=== PATIENT | female | born 1935 | race African-American/Black ===

== ENCOUNTER 2022-01-26 09:50 | Inpatient (IN) | payer OTHER ==
[~2022-01-26] VITALS: Ht 167.6 cm; Wt 61.7 kg
[2022-01-26 10:43] LABS: BASOPHILS % 0.6 % (0.0-2.0); EOSINOPHILS % 2.6 % (0.0-5.0); HEMATOCRIT. 31.9 % (36.0-48.0); HEMOGLOBIN. 10.7 g/dL (12.0-16.0); LYMPHOCYTES % 34.3 % (20.0-50.0); MEAN CORPUSCULAR HEMOGLOBIN 28.2 pg (28.0-32.0); MEAN CORPUSCULAR VOLUME 84.2 fL (81.0-99.0); MEAN PLATELET VOLUME 7.5 fl (7.4-10.4); MONOCYTES % 10.3 % (2.0-8.0); NEUTROPHILS % 52.2 % (40.0-76.0); PLATELET 310 x1000/uL (130-400); RED BLOOD CELL COUNT 3.79 mill/uL (4.2-5.4); RED CELL DISTRIBUTION WIDTH 13.2 % (11.6-14.6)
[2022-01-26 10:48] LABS: CHLORIDE 87 mEq/L (98-107)
[2022-01-26 10:56] LABS: ETHANOL BLOOD < 10 mg/dL
[2022-01-26] MEDS ORDERED: SODIUM CHLORIDE 3% 500ML IV SOLN IV ONE (11:15)
[2022-01-26] MEDS ORDERED: SODIUM CHLORIDE 0.9% 1,000 ML IV ONE (11:15)
[2022-01-26 11:38] LABS: CLARITY URINE TURBID (CLEAR); COLOR URINE YELLOW (YELLOW); KETONES URINE NEGATIVE (NEGATIVE); LEUKOCYTE ESTERASE URINE 3+ (NEGATIVE); NITRITE URINE NEGATIVE (NEGATIVE); OCCULT BLOOD URINE 3+ (NEGATIVE); PH URINE 5.5 (4.5-8.0); PROTEIN URINE 1+ (NEGATIVE); SPECIFIC GRAVITY URINE 1.018 (1.005-1.030); UROBILINOGEN URINE 0.2 E.U./dL (0.2-1.0)
[2022-01-26 11:53] LABS: *AMPHETAMINES SCREEN URINE NEGATIVE (NEGATIVE); *BARBITURATES SCREEN URINE NEGATIVE (NEGATIVE); *BENZODIAZEPINES SCREEN URINE NEGATIVE (NEGATIVE); *COCAINE SCREEN URINE NEGATIVE (NEGATIVE); CANNABINOID URINE SCREEN NEGATIVE (NEGATIVE); METHADONE URINE SCREEN NEGATIVE (NEGATIVE); OPIATES URINE SCREEN NEGATIVE (NEGATIVE); PHENCYCLIDINE URINE SCREEN NEGATIVE (NEGATIVE)
[2022-01-26] MEDS ORDERED: SODIUM CHLORIDE 3% 100 ML IV SCH (12:00)
[2022-01-26] MEDS ORDERED: IOHEXOL-350 100 ML BOTTLE ONE (13:07)
[2022-01-26 14:24] LABS: T4 FREE 1.53 ng/dL (0.76-1.46)
[2022-01-26 14:38] LABS: FOLIC ACID (FOLATE) SERUM 9.7 ng/mL (>5.38)
[2022-01-26] MEDS ORDERED: MAGNESIUM/ALUMINUM HYDROXIDE/SIMETHICONE 30ML UDC PO PRN (15:15)
[2022-01-26] MEDS ORDERED: ONDANSETRON HCL 4MG/2ML INJ IV PRN (15:15)
[2022-01-26] MEDS ORDERED: DOCUSATE SODIUM 100MG CAPSULE PO PRN (15:15)
[2022-01-26] MEDS ORDERED: IPRATROPIUM/ALBUTEROL 0.5-3(2.5)MG/3ML NEB HHN PRN (15:15)
[2022-01-26] MEDS ORDERED: DIPHENHYDRAMINE 50MG/ML VIAL IV PRN (15:15)
[2022-01-26] MEDS ORDERED: ZOLPIDEM TARTRATE 5MG TABLET PO PRN (15:15)
[2022-01-26] MEDS ORDERED: ACETAMINOPHEN 325MG TABLET PO PRN (15:15)
[2022-01-26] MEDS: ENOXAPARIN 30MG/0.3ML SYR SUBCUT SCH (16:06)
[2022-01-26] MEDS ORDERED: CEFTRIAXONE 1 G PREMIX 50 ML IV SCH (17:00)
[2022-01-26] MEDS ORDERED: SODIUM CHLORIDE 0.9% 100 ML IV ONE (17:15)
[2022-01-26 17:55] VITALS: BP 151/43
[2022-01-26] MEDS ORDERED: KETOROLAC 15MG/ML VIAL IV PRN (20:30)
[2022-01-26] MEDS ORDERED: NITROGLYCERIN 0.4MG TABLET SL SL PRN (20:30)
[2022-01-26 20:49] VITALS: BP 149/43
[2022-01-26] MEDS: FAMOTIDINE 20MG TABLET PO SCH (21:00)
[2022-01-26] MEDS ORDERED: DEXTROSE 50% WATER 50ML SYRINGE IV PRN (21:15)
[2022-01-26] MEDS ORDERED: ATROPINE SULFATE 1MG/ML VIAL IV PRN (22:45)
[2022-01-26] MEDS ORDERED: SODIUM CHLORIDE 0.9% 1,000 ML IV SCH (22:45)
[2022-01-26] MEDS: CEFTRIAXONE 1,000 MG in DEXTROSE 5% WATER 50 ML IV SCH (23:36)
[2022-01-27] VITALS (7 sets, daily range): BP systolic 135–148; BP diastolic 38–87
[2022-01-27] MEDS: BLOOD SUGAR DIAGNOSTIC STRIP TEST SCH ×4 (06:18→21:00)
[2022-01-27 07:44] LABS: BASOPHILS % 0.5 % (0.0-2.0); EOSINOPHILS % 1.4 % (0.0-5.0); HEMOGLOBIN. 10.1 g/dL (12.0-16.0); LYMPHOCYTES % 23.7 % (20.0-50.0); MEAN CORPUSCULAR HEMOGLOBIN 28.8 pg (28.0-32.0); MEAN CORPUSCULAR VOLUME 85.3 fL (81.0-99.0); MEAN PLATELET VOLUME 7.7 fl (7.4-10.4); MONOCYTES % 13.1 % (2.0-8.0); NEUTROPHILS % 61.3 % (40.0-76.0); PLATELET 284 x1000/uL (130-400); RED BLOOD CELL COUNT 3.51 mill/uL (4.2-5.4); RED CELL DISTRIBUTION WIDTH 13.6 % (11.6-14.6)
[2022-01-27] MEDS: INSULIN LISPRO 100 UNITS/ML SUBCUT SCH ×4 (08:10→21:00)
[2022-01-27 08:17] LABS: CHLORIDE 100 mEq/L (98-107); PHOSPHORUS 3.1 mg/dL (2.5-4.9)
[2022-01-27] MEDS ORDERED: OMEP20TA23 PO (09:14)
[2022-01-27] MEDS ORDERED: METF-415 PO (09:14)
[2022-01-27] MEDS ORDERED: ASPI-1497 PO (09:14)
[2022-01-27] MEDS ORDERED: OMEP20CA14 PO (09:14)
[2022-01-27] MEDS ORDERED: HYDR12.54 PO (09:14)
[2022-01-27] MEDS ORDERED: ATOR40TA70 PO (09:14)
[2022-01-27] MEDS ORDERED: TRAZ-251 PO (09:14)
[2022-01-27] MEDS ORDERED: LOSA100T32 PO (09:14)
[2022-01-27] MEDS ORDERED: GLIP-191 PO (09:14)
[2022-01-27] MEDS ORDERED: CEFTRIAXONE 1,000 MG in DEXTROSE 5% WATER 50 ML IV SCH (12:00)
[2022-01-27] MEDS: ENOXAPARIN 30MG/0.3ML SYR SUBCUT SCH (14:44)
[2022-01-27] MEDS: ACETAMINOPHEN 325MG TABLET PO PRN (18:57)
[2022-01-27] MEDS: FAMOTIDINE 20MG TABLET PO SCH (22:05)
[2022-01-27] MEDS: CEFTRIAXONE 1,000 MG in DEXTROSE 5% WATER 50 ML IV SCH (22:05)
[2022-01-27] MEDS: KETOROLAC 15MG/ML VIAL IV PRN (23:58)
[2022-01-28 00:44] VITALS: BP 128/40
[2022-01-28 04:00] VITALS: BP 137/32
[2022-01-28 08:00] VITALS: BP 161/47
[2022-01-28] MEDS: INSULIN LISPRO 100 UNITS/ML SUBCUT SCH ×4 (08:10→21:00)
[2022-01-28] MEDS: KETOROLAC 15MG/ML VIAL IV PRN (10:26)
[2022-01-28] MEDS: BLOOD SUGAR DIAGNOSTIC STRIP TEST SCH ×3 (11:45→21:24)
[2022-01-28 12:00] VITALS: BP 136/64
[2022-01-28 12:44] LABS: HEMATOCRIT 27.4 % (36.0-48.0); HEMOGLOBIN 9.1 g/dL (12.0-16.0); MEAN CORPUSCULAR HEMOGLOBIN 28.4 pg (28.0-32.0); MEAN CORPUSCULAR VOLUME 85.4 fL (81.0-99.0); PLATELET 267 x1000/uL (130-400); RED BLOOD CELL COUNT 3.21 mill/uL (4.2-5.4); RED CELL DISTRIBUTION WIDTH 13.7 % (11.6-14.6)
[2022-01-28] MEDS: ENOXAPARIN 30MG/0.3ML SYR SUBCUT SCH (14:52)
[2022-01-28] MEDS: ACETAMINOPHEN 325MG TABLET PO PRN (14:56)
[2022-01-28 16:02] VITALS: BP 128/56
[2022-01-28 20:00] VITALS: BP 126/57
[2022-01-28] MEDS: PREGABALIN 25MG CAPSULE PO SCH (21:26)
[2022-01-28] MEDS: FAMOTIDINE 20MG TABLET PO SCH (21:26)
[2022-01-28] MEDS: CEFTRIAXONE 1,000 MG in DEXTROSE 5% WATER 50 ML IV SCH (23:09)
[2022-01-29] VITALS (7 sets, daily range): BP systolic 131–148; BP diastolic 37–77
[2022-01-29] MEDS: INSULIN LISPRO 100 UNITS/ML SUBCUT SCH ×4 (08:07→20:48)
[2022-01-29] MEDS: BLOOD SUGAR DIAGNOSTIC STRIP TEST SCH ×4 (08:07→20:48)
[2022-01-29] MEDS: ACETAMINOPHEN 325MG TABLET PO PRN (09:31)
[2022-01-29] MEDS: PREGABALIN 25MG CAPSULE PO SCH ×2 (09:31→20:48)
[2022-01-29 11:34] LABS: HEMATOCRIT 25.3 % (36.0-48.0); HEMOGLOBIN 8.6 g/dL (12.0-16.0)
[2022-01-29] MEDS: ENOXAPARIN 30MG/0.3ML SYR SUBCUT SCH (15:36)
[2022-01-29 18:59] LABS: CREATINE KINASE 62 IU/L (26-192); CREATINE KINASE MB FRACTION < 1.0 ng/mL (0.5-3.6)
[2022-01-29] MEDS: FAMOTIDINE 20MG TABLET PO SCH (20:48)
[2022-01-29] MEDS: CEFTRIAXONE 1,000 MG in DEXTROSE 5% WATER 50 ML IV SCH (22:09)
== END 2022-01-29 23:15 | disposition short-term general hospital (02) | DRG 640 ==
LOC: ER 09:59 → 7EST 11:22 → EDBEDREQ 11:45 → EDBEDREQTM 11:45 → EDBEDREQSVC 11:45 → ENRESERV 16:28 → EDBEDREQSVC 16:31 → ENRESERV 17:45 → 7WST 18:46
PROVIDERS: ADMIT Internal Medicine; ATTEND Internal Medicine
DX: E87.1 Hypo-osmolality and hyponatremia (principal); G93.41 Metabolic encephalopathy; N39.0 Urinary tract infection, site not specified; Z20.822 Contact with and (suspected) exposure to COVID-19; D64.9 Anemia, unspecified; E11.9 Type 2 diabetes mellitus without complications; E78.5 Hyperlipidemia, unspecified; I10 Essential (primary) hypertension; R29.6 Repeated falls; Z86.73 Personal history of transient ischemic attack (TIA), and cerebral infarction without residual deficits; Z88.0 Allergy status to penicillin
CPT/HCPCS: 36415; 70496; 70498; 71045; 80048; 80053; 80061; 80305; 80320; 81003; 82550; 82553; 82607; 82746; 82962; 83036; 83540; 83550; 83735; 83930; 84100; 84295; 84439; 84443; 85014; 85018; 85025; 85027; 87426; 93005; 99291; J0696; J1650; J1815; J1885; J7030; J7060; Q9967; A4315; G0480

== ENCOUNTER 2022-03-07 09:55 | Emergency (ER) | payer OTHER ==
[~2022-03-07] VITALS: Ht 162.6 cm; Wt 59.0 kg
[~2022-03-07 09:55] MED LIST: ASPI-1497 PO; ATOR40TA70 PO; GLIP-191 PO; HYDR12.54 PO; LOSA100T32 PO; METF-415 PO; OMEP20TA23 PO; TRAZ-251 PO
[2022-03-07 12:46] LABS: BASOPHILS % 0.5 % (0.0-2.0); EOSINOPHILS % 1.9 % (0.0-5.0); HEMATOCRIT. 31.5 % (36.0-48.0); HEMOGLOBIN. 10.4 g/dL (12.0-16.0); LYMPHOCYTES % 17.6 % (20.0-50.0); MEAN CORPUSCULAR HEMOGLOBIN 28.6 pg (28.0-32.0); MEAN CORPUSCULAR VOLUME 86.3 fL (81.0-99.0); MEAN PLATELET VOLUME 8.6 fl (7.4-10.4); MONOCYTES % 5.4 % (2.0-8.0); NEUTROPHILS % 74.6 % (40.0-76.0); PLATELET 274 x1000/uL (130-400); RED BLOOD CELL COUNT 3.65 mill/uL (4.2-5.4); RED CELL DISTRIBUTION WIDTH 14.6 % (11.6-14.6)
[2022-03-07 12:57] LABS: CHLORIDE 108 mEq/L (98-107)
[2022-03-07 13:07] LABS: ETHANOL BLOOD < 10 mg/dL
[2022-03-07 15:51] LABS: PROTHROMBIN TIME 10.9 sec (9.6-11.0)
[2022-03-07 17:11] VITALS: BP 166/50
== END 2022-03-07 17:44 | disposition short-term general hospital (02) ==
LOC: ER 09:55 → CANBEDREQ 15:15 → ER 17:44
DX: E11.649 Type 2 diabetes mellitus with hypoglycemia without coma (principal); E11.65 Type 2 diabetes mellitus with hyperglycemia; I10 Essential (primary) hypertension; F03.90 Unspecified dementia, unspecified severity, without behavioral disturbance, psychotic disturbance, mood disturbance, and anxiety; D64.9 Anemia, unspecified; Z86.73 Personal history of transient ischemic attack (TIA), and cerebral infarction without residual deficits; Z79.84 Long term (current) use of oral hypoglycemic drugs; Z79.82 Long term (current) use of aspirin; Z88.0 Allergy status to penicillin
CPT/HCPCS: 36415; 71045; 80053; 80320; 82962; 84484; 85025; 93005; 99285; G0480

== ENCOUNTER 2024-12-13 13:11 | Emergency (ER) | payer OTHER ==
[~2024-12-13] VITALS: Ht 165.1 cm; Wt 65.0 kg
[~2024-12-13 13:11] MED LIST changes: -LOSA100T32 PO; +LOSA100T33 PO
[2024-12-13 13:14] VITALS: O2SAT 99
[2024-12-13 14:10] LABS: BASOPHILS % 0.8 % (0.0-2.0); EOSINOPHILS % 3.6 % (0.0-5.0); HEMATOCRIT. 31.9 % (36.0-48.0); HEMOGLOBIN. 10.7 g/dL (12.0-16.0); LYMPHOCYTES % 27.5 % (20.0-50.0); MEAN PLATELET VOLUME 8.8 fl (7.4-10.4); MONOCYTES % 6.3 % (2.0-8.0); NEUTROPHILS % 61.8 % (40.0-76.0); PLATELET 270 x1000/uL (130-400); RED BLOOD CELL COUNT 3.74 mill/uL (4.2-5.4); RED CELL DISTRIBUTION WIDTH 14.3 % (11.6-14.6)
[2024-12-13 14:26] LABS: CREATININE 1.1 mg/dL (0.6-1.0)
[2024-12-13 14:27] LABS: UREA NITROGEN BLOOD 23 mg/dL (9-23)
[2024-12-13 14:29] LABS: TROPONIN I HIGH SENSITIVITY 5 ng/L (3.0-34)
[2024-12-13] MEDS: LABETALOL 5MG/ML 4ML INJ IV ONE (17:02)
[2024-12-13] MEDS: SODIUM CHLORIDE 0.9% 1,000 ML IV ONE (17:03)
[2024-12-13] MEDS ORDERED: AZITHROMYCIN 500MG/250ML 250 ML IV STA (20:19)
[2024-12-13] MEDS ORDERED: HYDRALAZINE 20MG/ML VIAL IV ONE (20:45)
[2024-12-13] MEDS ORDERED: AZITHROMYCIN 500MG/250ML 250 ML IV NR (22:15)
[2024-12-13] MEDS: CEFTRIAXONE 2GM/50ML 50 ML IV ONE (22:30)
[2024-12-13] MEDS: HYDRALAZINE 20MG/ML VIAL IV NR (22:31)
[2024-12-13 22:34] VITALS: BP 131/51; PULSE 52; RESP 18; TEMP 36.9; O2SAT 99
[2024-12-13 22:52] LABS: CLARITY URINE CLEAR (CLEAR); COLOR URINE YELLOW (YELLOW); GLUCOSE URINE NEGATIVE (NEGATIVE); KETONES URINE NEGATIVE (NEGATIVE); LEUKOCYTE ESTERASE URINE TRACE (NEGATIVE); NITRITE URINE NEGATIVE (NEGATIVE); OCCULT BLOOD URINE TRACE (NEGATIVE); PH URINE 6.5 (4.5-8.0); PROTEIN URINE 3+ (NEGATIVE); SPECIFIC GRAVITY URINE 1.009 (1.005-1.030); UROBILINOGEN URINE 0.2 E.U./dL (0.2-1.0)
[2024-12-13 23:14] LABS: BACTERIA URINE 1+; RBC URINE 0-2 /hpf (0-2); SQUAMOUS EPITHELIAL CELL URINE FEW /lpf (RARE/1+); WBC URINE 0-2 /hpf (0-2)
== END 2024-12-13 23:35 | disposition short-term general hospital (02) ==
LOC: ER 13:11 → CMPBEDREQ 12-15 10:21
DX: R53.1 Weakness (principal); F03.90 Unspecified dementia, unspecified severity, without behavioral disturbance, psychotic disturbance, mood disturbance, and anxiety; I10 Essential (primary) hypertension; Z79.899 Other long term (current) drug therapy; Z86.73 Personal history of transient ischemic attack (TIA), and cerebral infarction without residual deficits; Z88.0 Allergy status to penicillin; Z98.890 Other specified postprocedural states
CPT/HCPCS: 99285; 96365; 96375; 71045; 96361; 80048; 81003; 82962; 83605; 85025; 87086; 84484; 36415; 93005; J0456; J0696; J0360; J3490; J7030